=== PATIENT | male | born 1980 | race Caucasian/White ===

== ENCOUNTER 2017-11-07 11:49 | Inpatient (IN) ==
[2017-11-07 13:29] LABS: Basophils % 0.6 %; Eosinophils % 0.4 %; Hematocrit 51.4 % (37.5-50.1); Hemoglobin 17.5 g/dL (12.9-16.9); Immature Granulocytes % 0.2 % (0-4); Lymphocytes # 1.1 K/mcL (0.6-4.6); Lymphocytes % 21.8 %; Mean Corpuscular Hemoglobin 29.3 pg (28.0-33.3); Mean Corpuscular Volume 86.1 fL (83.0-100.0); Mean Platelet Volume 10.3 fL (9.4-12.4); Monocytes # 1.1 K/mcL (0.0-1.3); Monocytes % 20.2 %; Platelet Count 195 K/mcL (140-400); Red Blood Count 5.97 M/mcL (4.19-5.50); Segmented Neutrophils % 56.8 %
[2017-11-07 13:35] LABS: INR 1.3; Prothrombin Time 15.1 Seconds (9.4-12.1)
--- NOTE | 2017-11-07 13:35 | Emergency Department Note ---
Disposition Clinical Impression: Hepatitis Disposition: Admitted As Inpatient Condition: Good Referrals: NONE,PCP [Primary Care Provider] - Forms: ED Satisfaction Letter, Work/School Release Time of Disposition: 15:58 General Adult HPI - General Chief complaint: ED General Medical Stated complaint: jaundice Time Seen by Provider: 11/07/17 12:11 Source: patient Mode of arrival: ambulatory Limitations: no limitations Nursing Notes Reviewed: Yes Vital Signs Reviewed: Yes - History of Present Illness HPI Narrative: Clinton Escalante is a 36-yo male patient with PMHx of IV drug use, acute hepatitis several years ago for which he was partially treated at [facility], and current smoking, and denies any recent alcohol use. His chief complaint is jaundice with malaise and fatigue which have largely kept him bedridden, and which have been gradually increasing for the past four days. He also describes RUQ abdominal discomfort similar to what he experienced during his hepatitis episode. He endorses anorexia, chalky hand stools, and diffusely generalized itching, but denies abdominal pain, nausea, vomiting, constipation, diarrhea, fevers, or chills. He does not describe any aggravating or relieving factors. I have re-performed and reviewed the history documented by the medical student, and I confirm its accuracy except as noted below Patient is seen and evaluated by me agree with the above history done by medical student. I also got from the patient that the jaundice in his eyes and sclera are new approximate 3 days ago. He was diagnosed with hepatitis C at that previous visit. Patient said that he has had mild weakness no real abdominal pain just discomfort if you palpate his right upper quadrant. Otherwise patient feels normal has no other complaints. Patient had no increased bruising, changes in bowel movements, pain with urination. Onset (ago): day(s) (4) Location: abdomen Radiation: non-radiation Pain Severity: mild Pain Scale: 3 - Related Data Previous Rx's Medication Instructions Recorded Sulfamethoxazole/Trimeth DS 1 each PO BID #14 tablet 09/26/16 [Bactrim DS] cephALEXin [Keflex] 500 mg PO QID #40 capsule 09/26/16 Allergies Allergy/AdvReac Type Severity Reaction Status Date / Time No Known Allergies Allergy Verified 11/07/17 11:59 All systems ED: reviewed and negative except as stated. Constitutional: Reports: weakness, other (malaise and fatigue) Cardiovascular: Denies: chest pain, edema Respiratory: Denies: dyspnea Gastrointestinal: Reports: other (bailon-white stools, anorexia). Denies: abdominal pain, nausea, vomiting, diarrhea, constipation Genitourinary: Denies: urgency, dysuria, frequency Musculoskeletal: Denies: back pain, neck pain Integumentary: Reports: other (diffuse itching) Neurological: Reports: weakness. Denies: headache, numbness, paresthesias, confusion Past Medical History - Past Medical History Attestation: Yes The following information was validated with the patient. Source: patient Medical history: Reports: hepatitis Surgical history: Reports: no surgical history Psychiatric history: Reports: no psych history - Social History Smoking Status: Current every day smoker Smokeless Tobacco Status: No Alcohol use: Reports: none Drug use: Reports: methamphetamine, IV Drug Use Physical Exam - General Limitations: no limitations General appearance: alert, in no apparent distress - Head Head exam: normal inspection - Eye Eye exam: Present: scleral icterus - ENT ENT exam: normal exam - Neck Neck exam: Present: normal inspection - Chest Chest inspection: Present: normal inspection, symmetric chest wall rise - Respiratory Respiratory exam: Present: normal lung sounds bilaterally - Cardiovascular Cardiovascular exam: Present: regular rate, normal rhythm - Abdominal Exam Abdominal exam: Present: soft, tenderness (RUQ with inspiration), normal bowel sounds, Willoughby's sign. Absent: guarding, rebound, rigidity, organomegaly Abdominal tenderness: Present: RUQ, mild - Extremities Exam Extremities exam: Present: normal inspection - Neurological Exam Neurological exam: Present: alert, oriented X3 - Skin Skin exam: Present: warm, dry, other (Generalized jaundice) Course Course Narrative: Patient here with jaundice. He does have mild pain when palpating the right upper quadrant. Liver is not palpable. We will get basic labs including CBC, BMP, hepatic panel, hepatitis viral panel, PT/INR, lipase as well as urinalysis. - Consultations Consultation #1: Spoke with the hospitalist Dr. Yun who agreed to admit the patient to their service. Patient is admitted in stable condition. Time: 15:45 Vital Signs Temperature 97.7 F 11/07/17 11:55 Pulse Rate 99 11/07/17 11:55 Respiratory Rate 16 11/07/17 11:55 Blood Pressure 139/93 11/07/17 11:55 O2 Sat by Pulse Oximetry 94 11/07/17 11:55 Temperature 97.7 F 11/07/17 11:55 Pulse Rate 99 11/07/17 11:55 Respiratory Rate 16 11/07/17 11:55 Blood Pressure 139/93 11/07/17 11:55 O2 Sat by Pulse Oximetry 94 11/07/17 11:55 Oxygen Delivery Oxygen Delivery Room Air Medical Decision Making - MDM Narrative Medical decision making narrative: 36-year-old male presents to the emergency department with jaundice. He did not have any right upper quadrant pain when I palpated there is no palpable liver. Labs came back with a normal PT INR normal CBC CMP did come back with an elevated AST and a LT that were greater than what our lab could read a greater than 3000 and 500. Alkaline phosphatase was also elevated. Due to this patient most likely has hepatitis A and hepatitis C due to history. Patient said that he would be okay with being admitted here if GI can see him here he feels that he does not have to go to [facility]. Patient did have a dirty urine glucose esterase as well as nitrite positive this does seem on with a 36- year-old male but just in case we felt that treatment with Rocephin is warranted 's we did give him 1 dose of Rocephin here in the emergency department. Hepatitis be came back as negative the rest the hepatitis viral panel is still pending at this time. Patient had an IV placed. I spoke with the hospitalist Dr. Yun who agreed to admit the patient to their service. Patient is admitted in stable condition. - Medical Records Medical records reviewed: Yes I reviewed the patient's medical records. - Lab Data Lab results reviewed: Yes I reviewed the patient's lab results. Result diagrams: 11/07/17 13:04 11/07/17 13:04 Lab Results 11/07/17 11/07/17 11/07/17 Range/Units 13:04 13:04 13:04 WBC 5.2 (4.3-11.1) K/mcL RBC 5.97 H (4.19-5.50) M/mcL Hgb 17.5 H (12.9-16.9) g/dL Hct 51.4 H (37.5-50.1) % MCV 86.1 (83.0-100.0) fL MCH 29.3 (28.0-33.3) pg MCHC 34.0 (31.6-35.5) g/dL RDW 15.0 H (11.5-14.5) % Plt Count 195 (140-400) K/mcL MPV 10.3 (9.4-12.4) fL Immature Gran % 0.2 (0-4) % Seg Neutrophils % 56.8 % Lymphocytes % 21.8 % Monocytes % 20.2 % Eosinophils % 0.4 % Basophils % 0.6 % Neutrophils # 3.0 (1.6-8.9) K/mcL Lymphocytes # 1.1 (0.6-4.6) K/mcL Monocytes # 1.1 (0.0-1.3) K/mcL Eosinophils # 0.0 (0.0-0.6) K/mcL Basophils # 0.0 (0.0-0.2) K/mcL Reactive Lymphocytes Present A (Not Present) Platelet Estimate Normal (Normal) PT (9.4-12.1) Seconds INR Sodium 134 L (136-145) mEq/L Potassium 3.8 (3.5-5.1) mEq/L Chloride 100 (98-107) mEq/L Carbon Dioxide 26 (23-29) mEq/L BUN 11 (6-20) mg/dL Creatinine 1.13 (0.70-1.30) mg/dL Est GFR ( Amer) > 60 (> 60) Est GFR (Non-Af Amer) > 60 (> 60) BUN/Creatinine Ratio 10 (6-26) Glucose 77 (70-105) mg/dL Calculated Osmolality 276 L (280-300) Calcium 8.8 (8.6-10.3) mg/dL Total Bilirubin 6.1 H (0.3-1.0) mg/dL AST > 3000 H (13-39) Units/L ALT > 500 H (7-52) Units/L Alkaline Phosphatase 282 H (34-104) Units/L Serum Total Protein 7.0 (6.4-8.9) g/dL Albumin 3.5 (3.5-5.7) g/dL Globulin 3.5 (2.4-3.5) g/dL Albumin/Globulin Ratio 1.0 L (1.1-2.2) Lipase 29 (11-82) Units/L Urine Color (Yellow) Urine Clarity (Clear) Urine pH (5.0-8.0) pH Units Ur Specific [place] (1.010-1.025) Urine Protein (Neg-Trace) mg/dL Urine Glucose (UA) (Normal) mg/dL Urine Ketones (Negative) mg/dL Urine Blood (Negative) Urine Nitrite (Negative) Urine Bilirubin (Negative) Urine Urobilinogen (Normal) mg/dL Ur Leukocyte Esterase (Negative) Urine Microscopic WBC (0-3) per hpf Ur Squamous Epith Cells (None-Few) per lpf Urine Bacteria (None-Few) per hpf Urine Mucus (Few) Ur Culture Indicated? (NO) Hep Bs Antigen Nonreactive (Nonreactive) 11/07/17 11/07/17 Range/Units 13:04 13:48 WBC (4.3-11.1) K/mcL RBC (4.19-5.50) M/mcL Hgb (12.9-16.9) g/dL Hct (37.5-50.1) % MCV (83.0-100.0) fL MCH (28.0-33.3) pg MCHC (31.6-35.5) g/dL RDW (11.5-14.5) % Plt Count (140-400) K/mcL MPV (9.4-12.4) fL Immature Gran % (0-4) % Seg Neutrophils % % Lymphocytes % % Monocytes % % Eosinophils % % Basophils % % Neutrophils # (1.6-8.9) K/mcL Lymphocytes # (0.6-4.6) K/mcL Monocytes # (0.0-1.3) K/mcL Eosinophils # (0.0-0.6) K/mcL Basophils # (0.0-0.2) K/mcL Reactive Lymphocytes (Not Present) Platelet Estimate (Normal) PT 15.1 H (9.4-12.1) Seconds INR 1.3 Sodium (136-145) mEq/L Potassium (3.5-5.1) mEq/L Chloride (98-107) mEq/L Carbon Dioxide (23-29) mEq/L BUN (6-20) mg/dL Creatinine (0.70-1.30) mg/dL Est GFR ( Amer) (> 60) Est GFR (Non-Af Amer) (> 60) BUN/Creatinine Ratio (6-26) Glucose (70-105) mg/dL Calculated Osmolality (280-300) Calcium (8.6-10.3) mg/dL Total Bilirubin (0.3-1.0) mg/dL AST (13-39) Units/L ALT (7-52) Units/L Alkaline Phosphatase (34-104) Units/L Serum Total Protein (6.4-8.9) g/dL Albumin (3.5-5.7) g/dL Globulin (2.4-3.5) g/dL Albumin/Globulin Ratio (1.1-2.2) Lipase (11-82) Units/L Urine Color [place] A (Yellow) Urine Clarity Cloudy A (Clear) Urine pH 5.5 (5.0-8.0) pH Units Ur Specific [place] 1.021 (1.010-1.025) Urine Protein 30 H (Neg-Trace) mg/dL Urine Glucose (UA) 100 H (Normal) mg/dL Urine Ketones Trace H (Negative) mg/dL Urine Blood Negative (Negative) Urine Nitrite Positive A (Negative) Urine Bilirubin Large H (Negative) Urine Urobilinogen Normal (Normal) mg/dL Ur Leukocyte Esterase Small H (Negative) Urine Microscopic WBC 0-3 (0-3) per hpf Ur Squamous Epith Cells Few (None-Few) per lpf Urine Bacteria Few (None-Few) per hpf Urine Mucus Few (Few) Ur Culture Indicated? YES A (NO) Hep Bs Antigen (Nonreactive)
[2017-11-07 13:59] LABS: Bilirubin,Urine Large (Negative); Blood,Urine Negative (Negative); Clarity,Urine Cloudy (Clear); Color,Urine Orange (Yellow); Glucose,Urine (UA) 100 mg/dL (Normal); Ketones,Urine Trace mg/dL (Negative); Leukocyte Esterase,Urine Small (Negative); Nitrite,Urine Positive (Negative); PH,Urine 5.5 pH Units (5.0-8.0); Protein,Urine 30 mg/dL (Neg-Trace); Specific Gravity,Urine 1.021 (1.010-1.025); Urobilinogen,Urine Normal (Normal)
[2017-11-07 14:22] LABS: Hepatitis B Surface Antigen Nonreactive (Nonreactive)
[2017-11-07 14:23] LABS: Platelet Estimate Normal (Normal); Reactive Lymphocytes Present (Not Present)
[2017-11-07 14:57] LABS: Alanine Aminotransferase > 500 Units/L (7-52); Albumin 3.5 g/dL (3.5-5.7); Alkaline Phosphatase 282 Units/L (34-104); BUN/Creatinine Ratio 10 (6-26); Bilirubin,Total 6.1 mg/dL (0.3-1.0); Blood Urea Nitrogen 11 mg/dL (6-20); Calcium 8.8 mg/dL (8.6-10.3); Carbon Dioxide 26 mEq/L (23-29); Chloride 100 mEq/L (98-107); Globulin 3.5 g/dL (2.4-3.5); Glucose 77 mg/dL (70-105); Lipase 29 Units/L (11-82); Osmolality,Calculated 276 (280-300); Potassium 3.8 mEq/L (3.5-5.1); Sodium 134 mEq/L (136-145); eGFR For Non-African Americans > 60 (> 60)
[2017-11-07 15:04] LABS: Mucus,Urine Few (Few); Squamous Epithelial Cell,Urine Few per lpf (None-Few)
[2017-11-07 15:05] LABS: Bacteria,Urine Few per hpf (None-Few); WBC,Urine 0-3 per hpf (0-3)
[2017-11-07] MEDS ORDERED: 0.9 % Sodium Chloride 1,000 ML IVC ONE ×2 (15:09→16:56)
[2017-11-07] MEDS ORDERED: cefTRIAXone 1,000 MG in Water for inj. (sterile) 20 ML 10 ML IVP ONE (15:09)
[2017-11-07 15:11] LABS: Aspartate Amino Transferase > 3000 Units/L (13-39)
--- NOTE | 2017-11-07 16:16 | Emergency Department Note ---
Disposition Clinical Impression: Hepatitis Disposition: Admitted As Inpatient Condition: Good General Adult HPI - General Chief complaint: ED General Medical Stated complaint: jaundice Time Seen by Provider: 11/07/17 12:11 Source: patient Mode of arrival: ambulatory Limitations: no limitations - History of Present Illness Location: abdomen Pain Scale: 3 - Related Data Home Medications Medication Instructions Recorded Confirmed No Known Home Drugs 11/07/17 11/07/17 Allergies Allergy/AdvReac Type Severity Reaction Status Date / Time No Known Allergies Allergy Verified 11/07/17 11:59 Constitutional: Reports: weakness, other (malaise and fatigue) Cardiovascular: Denies: chest pain, edema Respiratory: Denies: dyspnea Gastrointestinal: Reports: other (bailon-white stools, anorexia). Denies: abdominal pain, nausea, vomiting, diarrhea, constipation Genitourinary: Denies: urgency, dysuria, frequency Musculoskeletal: Denies: back pain, neck pain Integumentary: Reports: other (diffuse itching) Neurological: Reports: weakness. Denies: headache, numbness, paresthesias, confusion Past Medical History - Past Medical History Medical history: Reports: hepatitis Surgical history: Reports: no surgical history Psychiatric history: Reports: no psych history - Social History Smoking Status: Current every day smoker Smokeless Tobacco Status: No Alcohol use: Reports: none Drug use: Reports: methamphetamine, IV Drug Use Physical Exam - General Limitations: no limitations General appearance: alert, in no apparent distress Course Vital Signs Temperature 97.7 F 11/07/17 11:55 Pulse Rate 99 11/07/17 11:55 Respiratory Rate 16 11/07/17 11:55 Blood Pressure 139/93 11/07/17 11:55 O2 Sat by Pulse Oximetry 94 11/07/17 11:55 Temperature 97.7 F 11/07/17 11:55 Pulse Rate 99 11/07/17 11:55 Respiratory Rate 16 11/07/17 11:55 Blood Pressure 139/93 11/07/17 11:55 O2 Sat by Pulse Oximetry 94 11/07/17 11:55 Oxygen Delivery Oxygen Delivery Room Air Medical Decision Making - Lab Data Result diagrams: 11/07/17 13:04 11/07/17 13:04 Lab Results 11/07/17 11/07/17 11/07/17 Range/Units 13:04 13:04 13:04 WBC 5.2 (4.3-11.1) K/mcL RBC 5.97 H (4.19-5.50) M/mcL Hgb 17.5 H (12.9-16.9) g/dL Hct 51.4 H (37.5-50.1) % MCV 86.1 (83.0-100.0) fL MCH 29.3 (28.0-33.3) pg MCHC 34.0 (31.6-35.5) g/dL RDW 15.0 H (11.5-14.5) % Plt Count 195 (140-400) K/mcL MPV 10.3 (9.4-12.4) fL Immature Gran % 0.2 (0-4) % Seg Neutrophils % 56.8 % Lymphocytes % 21.8 % Monocytes % 20.2 % Eosinophils % 0.4 % Basophils % 0.6 % Neutrophils # 3.0 (1.6-8.9) K/mcL Lymphocytes # 1.1 (0.6-4.6) K/mcL Monocytes # 1.1 (0.0-1.3) K/mcL Eosinophils # 0.0 (0.0-0.6) K/mcL Basophils # 0.0 (0.0-0.2) K/mcL Reactive Lymphocytes Present A (Not Present) Platelet Estimate Normal (Normal) PT (9.4-12.1) Seconds INR Sodium 134 L (136-145) mEq/L Potassium 3.8 (3.5-5.1) mEq/L Chloride 100 (98-107) mEq/L Carbon Dioxide 26 (23-29) mEq/L BUN 11 (6-20) mg/dL Creatinine 1.13 (0.70-1.30) mg/dL Est GFR ( Amer) > 60 (> 60) Est GFR (Non-Af Amer) > 60 (> 60) BUN/Creatinine Ratio 10 (6-26) Glucose 77 (70-105) mg/dL Calculated Osmolality 276 L (280-300) Calcium 8.8 (8.6-10.3) mg/dL Total Bilirubin 6.1 H (0.3-1.0) mg/dL AST > 3000 H (13-39) Units/L ALT > 500 H (7-52) Units/L Alkaline Phosphatase 282 H (34-104) Units/L Serum Total Protein 7.0 (6.4-8.9) g/dL Albumin 3.5 (3.5-5.7) g/dL Globulin 3.5 (2.4-3.5) g/dL Albumin/Globulin Ratio 1.0 L (1.1-2.2) Lipase 29 (11-82) Units/L Urine Color (Yellow) Urine Clarity (Clear) Urine pH (5.0-8.0) pH Units Ur Specific [place] (1.010-1.025) Urine Protein (Neg-Trace) mg/dL Urine Glucose (UA) (Normal) mg/dL Urine Ketones (Negative) mg/dL Urine Blood (Negative) Urine Nitrite (Negative) Urine Bilirubin (Negative) Urine Urobilinogen (Normal) mg/dL Ur Leukocyte Esterase (Negative) Urine Microscopic WBC (0-3) per hpf Ur Squamous Epith Cells (None-Few) per lpf Urine Bacteria (None-Few) per hpf Urine Mucus (Few) Ur Culture Indicated? (NO) Hep Bs Antigen Nonreactive (Nonreactive) 11/07/17 11/07/17 Range/Units 13:04 13:48 WBC (4.3-11.1) K/mcL RBC (4.19-5.50) M/mcL Hgb (12.9-16.9) g/dL Hct (37.5-50.1) % MCV (83.0-100.0) fL MCH (28.0-33.3) pg MCHC (31.6-35.5) g/dL RDW (11.5-14.5) % Plt Count (140-400) K/mcL MPV (9.4-12.4) fL Immature Gran % (0-4) % Seg Neutrophils % % Lymphocytes % % Monocytes % % Eosinophils % % Basophils % % Neutrophils # (1.6-8.9) K/mcL Lymphocytes # (0.6-4.6) K/mcL Monocytes # (0.0-1.3) K/mcL Eosinophils # (0.0-0.6) K/mcL Basophils # (0.0-0.2) K/mcL Reactive Lymphocytes (Not Present) Platelet Estimate (Normal) PT 15.1 H (9.4-12.1) Seconds INR 1.3 Sodium (136-145) mEq/L Potassium (3.5-5.1) mEq/L Chloride (98-107) mEq/L Carbon Dioxide (23-29) mEq/L BUN (6-20) mg/dL Creatinine (0.70-1.30) mg/dL Est GFR ( Amer) (> 60) Est GFR (Non-Af Amer) (> 60) BUN/Creatinine Ratio (6-26) Glucose (70-105) mg/dL Calculated Osmolality (280-300) Calcium (8.6-10.3) mg/dL Total Bilirubin (0.3-1.0) mg/dL AST (13-39) Units/L ALT (7-52) Units/L Alkaline Phosphatase (34-104) Units/L Serum Total Protein (6.4-8.9) g/dL Albumin (3.5-5.7) g/dL Globulin (2.4-3.5) g/dL Albumin/Globulin Ratio (1.1-2.2) Lipase (11-82) Units/L Urine Color [place] A (Yellow) Urine Clarity Cloudy A (Clear) Urine pH 5.5 (5.0-8.0) pH Units Ur Specific [place] 1.021 (1.010-1.025) Urine Protein 30 H (Neg-Trace) mg/dL Urine Glucose (UA) 100 H (Normal) mg/dL Urine Ketones Trace H (Negative) mg/dL Urine Blood Negative (Negative) Urine Nitrite Positive A (Negative) Urine Bilirubin Large H (Negative) Urine Urobilinogen Normal (Normal) mg/dL Ur Leukocyte Esterase Small H (Negative) Urine Microscopic WBC 0-3 (0-3) per hpf Ur Squamous Epith Cells Few (None-Few) per lpf Urine Bacteria Few (None-Few) per hpf Urine Mucus Few (Few) Ur Culture Indicated? YES A (NO) Hep Bs Antigen (Nonreactive) Attestation Statement - Attestation Attestation: I examined this patient and my medical decision-making was reviewed with the Resident Physician. I agree with the documented findings, disposition and treatment plan as described except to the extent set forth below. 36 year old male with history of hep c and his last excerbation was 2014 and states that he feels jaundiced at this time. He could possibly have a co- infection with hep A as this has been occuring in the area. His bili is 6.1 and AST/ALT are extremely elevated. We willl admit to medicine
[2017-11-07] MEDS ORDERED: Acetaminophen 325 MG TABLET PO PRN (16:52)
[2017-11-07] MEDS ORDERED: Naloxone 0.4 MG/ML INJ IVP PRN (16:52)
[2017-11-07 17:01] LABS: Amphetamine Screen,Urine Positive ng/mL (Cutoff=1000); Barbiturate Screen,Urine Negative ng/mL (Cutoff=200); Benzodiazepines Screen,Urine Negative ng/mL (Cutoff=200); Cannabinoid Screen,Urine Positive ng/mL (Cutoff = 50); Cocaine Screen,Urine Negative ng/mL (Cutoff= 300); Opiate Screen,Urine Negative ng/mL (Cutoff=300); Phencyclidine Screen,Urine Negative ng/mL (Cutoff=25)
--- NOTE | 2017-11-07 17:17 | Internal Med History&Physical ---
<OrenYohan - Last Filed: 11/07/17 18:01> Date of Encounter: 11/07/17 Time of Encounter: 16:30 Internal Medicine - H&P: HPI Chief complaint: Jaundiced/Weakness Admitted From: Emergency Dept Plans for Post Hospital Care: Home History of present illness: Mr. Escalante is a 36 year old male w/PMH of hepatitis presents from the ED w/CC of severe weakness and jaundice since Saturday. Pt. states that he had the same sx in 2015 w/hepatitis @ [facility]. Associated sx: nausea, vomiting, chills, and itching all over. No alleviating or aggravating factors. States that he has not been eating much but has been trying in increase his fluids. Reports frequent urination and dark urine for the past several days. Pt. reports IV drug use ( meth) on Saturday, oral ingestion of meth on Saturday, chalky stools, RUQ pain, nausea, vomiting, chills, and diffuse itching but denies recent illness, fever, changes in vision, headache, unusual bleeding, diarrhea, constipation, cough, chest congestion, dizziness, lightheadedness, numbness, tingling, pre-syncope, or syncope. Past Med Surg Social Fam HX - Past Medical History Source: patient, old records reviewed Medical history: hepatitis Psychiatric history: no psych history - Past Surgical History Surgical History: no surgical history - Social History Smoking Status: Current every day smoker Packs per day: 1/2 PPD Smokeless Tobacco Status: No Alcohol use: none Drug use: methamphetamine (Last injection on Saturday. Reports oral ingestion on Saturday.), IV Drug Use (Last used on Saturday - Reports injecting meth) Current living situation: Home Activity Level: Independent ambulation Recent Out of Country Travel Within the Last 8 Weeks: No Exposure or Possible Exposure to Illness During Travel: No - Family History Father Family Member Ethnicity: Non- Living Status: Still Living Hx Family Medical Disorders: No Mother Family Member Ethnicity: Non- Living Status: Still Living Hx Family Medical Disorders: No Sister Family Member Ethnicity: Non- Living Status: Still Living Hx Family Medical Disorders: No Internal Medicine - H&P: Meds No Known Home Drugs 11/07/17 [History] 3 Allergy/AdvReac Type Severity Reaction Status Date / Time No Known Allergies Allergy Verified 11/07/17 11:59 All Systems PM: A 10-system review of systems was performed and is negative for pertinent findings except as documented above in the HPI. - Constitutional Constitutional: anorexia, chills, fatigue, weakness, no fever(s), no night sweats - EENT Eyes: no change in vision, no discharge, no pain, no photophobia Ears: no ear discharge, no ear pain, no tinnitus Nose, mouth and throat: no dysphagia, no nasal discharge, no neck pain, no sore throat - Breasts Breasts: as per HPI - Cardiovascular Cardiovascular ROS IM: no chest pain, no diaphoresis, no dyspnea, no lightheadedness, no palpitations, no syncope - Respiratory Respiratory: no cough, no dyspnea, no wheezing, no excessive phlegm production - Gastrointestinal Gastrointestinal: as per HPI, abdominal pain, change in stool character (Chalky) , nausea, vomiting, no diarrhea, no hematemesis, no hematochezia, no melena - Genitourinary Genitourinary ROS male: as per HPI, urinary frequency - Musculoskeletal Musculoskeletal ROS IM: no numbness, no tingling - Integumentary Integumentary IM: no rash, no unusual bruising - Neurological Neurological ROS: no confusion, no convulsions, no focal weakness, no numbness, no tingling, no tremor(s) - Psychiatric Psychiatric: as per HPI - Endocrine Endocrine IM: as per HPI - Hematologic/Lymphatic Hematologic/Lymphatic: no easy bruising - Allergic/Immunologic Allergic/Immunologic: as per HPI - Constitutional Vitals: Temp Pulse Resp BP Pulse Ox 97.7 F 99 16 139/93 94 11/07/17 11:55 11/07/17 11:55 11/07/17 11:55 11/07/17 11:55 11/07/17 11:55 General appearance: Present: cooperative, A&O X 3, pleasant, no acute distress, obese, answers questions appropriately Exam: Pt. examined at bedside. Pt. reports severe weakness, fatigue, and being in bed for the past several days. Reports reduced appetite and RUQ pain. States he's had episodes of N/V. Abelardo stools. States that he injected meth on Saturday and did oral ingestion of meth on Saturday. Also reports chills and diffuse, allover itching. Mildly jaundiced on exam. Denies any other sx. Pt. to be falls/ safety precautions and up with assist d/t weakness. - Head Head exam: Present: atraumatic, normocephalic - Eye Eye exam: Present: PERRL Pupils: Present: PERRL Additional comments: Sclera mildly yellow. - ENT ENT exam: Present: normal exam - Neck Neck exam general surgery: Present: normal inspection, supple, trachea midline. Absent: lymphadenopathy - Respiratory Respiratory exam: Present: CTAB. Absent: accessory muscle use, rales, rhonchi, wheezes - Cardiovascular Cardiovascular exam: Present: RRR, +S1, +S2. Absent: diastolic murmur, gallop, rubs, systolic murmur - GI/Abdominal GI/Abdominal exam: Present: normal bowel sounds, soft, tenderness (RUQ), no peritoneal signs. Absent: distended - Rectal Rectal exam: Present: deferred - Additional comments: exam deferred. - Extremities Exam Extremities exam: Present: warm, radial pulses palpable and symmetrical. Absent : calf tenderness, cyanotic, pedal edema - Back Exam Back exam: Present: normal inspection - Neurological Exam Neurological exam: Present: alert, CN II-XII intact, oriented X3, no focal deficits. Absent: pronater drift, facial droop, speech deficit - Psychiatric Psychiatric exam: Present: normal affect, normal mood - Skin Skin exam: Present: dry, intact Internal Med - H&P Results - Labs CBC & Chem 7: 11/07/17 13:04 11/07/17 13:04 - Assessment and plan (1) Hepatitis Current Visit: Yes Status: Acute Assessment and plan: Acute on chronic hepatitis. Pt. reports last sx in 2014 when he was treated at [facility]. Pt. currently mildly jaundiced. RUQ pain. 0.9 NS IV fluids. Monitor pt. and f/u labs. AST >3000 and ALT >500 on admission. Total bilirubin 6.1. Hepatitis panel pending. Ethyl alcohol pending. Lipase results pending. CT of the abdomen/pelvis ordered. GI consult ordered and I appreciate the consult and recommendations. GI consult needs confirmed in a.m. IVP Reglan for N/V. Clear liquid diet to be advanced as tolerated. 0.9 NS IV fluids (bolus followed by 100 mLs/HR). Pt. discussed w/Dr. Hassan who agrees w/plan of care. Pt. is high risk for further morbidity and complications d/t current and recurrent hepatitis , current IV drug abuse, current elevated liver enzymes, hx, and risk factors. Observation. (2) Weakness Current Visit: Yes Status: Acute Assessment and plan: Acute severe weakness since Saturday. Falls/safety precautions and up with assist only. (3) Drug abuse Current Visit: Yes Status: Chronic Assessment and plan: Hx of chronic drug abuse. Pt. states he uses meth. Reports injecting on Saturday and oral ingestion on Saturday. Urine tox screen also positive for marijuana. SW consult ordered for possible rehabilitation for chronic drug abuse. (4) Tobacco abuse Current Visit: Yes Status: Chronic Assessment and plan: Hx of chronic tobacco abuse. Pt. reports smoking 1/2 PPD. States he does not currently want to quit. 14 mg nicotine patch daily. (5) DVT prophylaxis Current Visit: Yes Status: Acute Assessment and plan: Bilateral SCDs on LEs for DVT prophylaxis. (6) Nausea and vomiting Current Visit: Yes Status: Acute Assessment and plan: Acute N/V associated w/current abdominal pain r/t hepatitis. IVP Reglan for N/V d/t kidney excretion versus hepatic excretion of Zofran and Phenergan. Monitor I &O. Qualifiers: Vomiting type: cyclical vomiting Vomiting Intractability: non-intractable Qualified Code(s): G43.A0 - Cyclical vomiting, not intractable - Time Spent With Patient Total time spent is greater than 50% in coordination of care (as documented) at patient's floor/unit and/or counseling patient: Greater than 35 minutes <Yeni Hassan - Last Filed: 11/07/17 22:09> Date of Encounter: 11/07/17 Internal Medicine - H&P: HPI History of present illness: Mr. Escalante is a 36 year old male All Systems PM: A 10-system review of systems was performed and is negative for pertinent findings except as documented above in the HPI. - Constitutional Vitals: Temp Pulse Resp BP Pulse Ox 100.3 F H 84 17 126/82 99 11/07/17 19:22 11/07/17 19:22 11/07/17 19:22 11/07/17 19:22 11/07/17 19:22 Internal Med - H&P Results - Labs CBC & Chem 7: 11/07/17 13:04 11/07/17 13:04 - Impressions ITS Impressions Abdomen/Pelvis CT 11/07/17 17:23 IMPRESSION: 1. Mild periportal edema is present, which is a nonspecific finding. No significant biliary dilation is seen, although lack of intravenous contrast limits evaluation. 2. Borderline splenomegaly. D/ / 11/07/2017 18:31:54 Mauricio Squires MD / [facility] Interpreting Provider: Mauricio Squires MD - Assessment and plan (1) Hepatitis Current Visit: Yes Status: Acute (2) Weakness Current Visit: Yes Status: Acute (3) Drug abuse Current Visit: Yes Status: Chronic (4) DVT prophylaxis Current Visit: Yes Status: Acute (5) Tobacco abuse Current Visit: Yes Status: Chronic (6) Nausea and vomiting Current Visit: Yes Status: Acute Qualifiers: Vomiting type: cyclical vomiting Vomiting Intractability: non-intractable Qualified Code(s): G43.A0 - Cyclical vomiting, not intractable - Time Spent With Patient Total time spent is greater than 50% in coordination of care (as documented) at patient's floor/unit and/or counseling patient: - Attending Attestation I examined this patient and my medical decision-making was reviewed with the Nurse Practitioner. I agree with the documented findings, disposition and treatment plan as described except to the extent set forth below. GI consult and evaluate acute hepatitis. Also continue IV fluids.
[2017-11-07] MEDS ORDERED: Ondansetron 4 MG/2 ML VIAL IVP PRN (17:43)
[2017-11-07] MEDS ORDERED: Metoclopramide 10 MG/2 ML VIAL IVP PRN (17:56)
[2017-11-07 19:25] LABS: Ethanol < 10 mg/dL (Less than 10)
[2017-11-07] MEDS: Nicotine 14 MG PATCH.TD24 TD SCH (19:37)
[2017-11-07] MEDS: 0.9 % Sodium Chloride 1,000 ML IVC SCH (21:01)
[2017-11-07] MEDS ORDERED: Acetaminophen 325 MG TABLET PO ONE (23:27)
[2017-11-08 03:54] LABS: Hepatitis A Antibody IgM Reactive (Nonreactive)
[2017-11-08 03:55] LABS: Hepatitis B Core IgM Reactive (Nonreactive); Hepatitis C Virus Antibody Reactive (Nonreactive)
[2017-11-08 05:49] LABS: Basophils % 0.4 %; Eosinophils % 0.4 %; Hematocrit 44.2 % (37.5-50.1); Immature Granulocytes % 0.6 % (0-4); Lymphocytes # 1.3 K/mcL (0.6-4.6); Lymphocytes % 25.6 %; Mean Corpuscular HGB Conc 33.7 g/dL (31.6-35.5); Mean Corpuscular Hemoglobin 28.7 pg (28.0-33.3); Mean Corpuscular Volume 85.2 fL (83.0-100.0); Mean Platelet Volume 10.2 fL (9.4-12.4); Monocytes # 1.1 K/mcL (0.0-1.3); Platelet Count 214 K/mcL (140-400); Red Blood Count 5.19 M/mcL (4.19-5.50); Red Cell Distribution Width 15.2 % (11.5-14.5)
[2017-11-08 05:56] LABS: Hemoglobin 14.9 g/dL (12.9-16.9); Neutrophils # 2.6 K/mcL (1.6-8.9)
[2017-11-08 06:20] LABS: Platelet Estimate Normal (Normal)
[2017-11-08 06:21] LABS: Reactive Lymphocytes Present (Not Present)
[2017-11-08 06:24] LABS: Alanine Aminotransferase > 500 Units/L (7-52); Albumin 2.9 g/dL (3.5-5.7); Alkaline Phosphatase 217 Units/L (34-104); Aspartate Amino Transferase > 3000 Units/L (13-39); BUN/Creatinine Ratio 12 (6-26); Bilirubin,Total 6.3 mg/dL (0.3-1.0); Blood Urea Nitrogen 11 mg/dL (6-20); Calcium 7.8 mg/dL (8.6-10.3); Carbon Dioxide 24 mEq/L (23-29); Chloride 107 mEq/L (98-107); Cholesterol 99 mg/dL (< 200); Glucose 99 mg/dL (70-105); HDL Cholesterol < 3 mg/dL (40-59); Magnesium 1.7 mg/dL (1.6-2.6); Osmolality,Calculated 279 (280-300); Potassium 4.3 mEq/L (3.5-5.1); Sodium 135 mEq/L (136-145); Total Protein 5.9 g/dL (6.4-8.9); Triglycerides 219 mg/dL (< 150); eGFR For Non-African Americans > 60 (> 60)
[2017-11-08] MEDS: 0.9 % Sodium Chloride 1,000 ML IVC SCH ×2 (06:27→16:42)
[2017-11-08] MEDS: Nicotine 14 MG PATCH.TD24 TD SCH (09:04)
--- NOTE | 2017-11-08 14:01 | Gastroenterology Consult Note ---
<Clinton Manuel C - Last Filed: 11/08/17 13:59> Date of Encounter: 11/08/17 Time of Encounter: 10:15 - Assessment and plan (1) Hepatitis Current Visit: Yes Status: Acute Assessment and plan: Hepatitis profile positive for Hep A, B, and C. LFTs elevated secondary to hepatitis A. Monitor hepatic panel daily. Follow up with Dr. Pate as outpatient in 2-3 weeks. Complete liver work up. Check hepatitis C quant and genotype to evaluate for active hep C. Patient will need to be drug and alcohol free in order to receive treatment for hep C. Instructed patient to not share any thing that could potentially cause bleeding such as razors, nail clippers, hair clippers. Instructed patient that if they were to cut themselves they need to clean up the blood or if someone else cleans up they need to wear gloves. Instructed patient they need to use protection while having sex. (2) Jaundice due to hepatitis Current Visit: Yes Status: Acute (3) Drug abuse Current Visit: Yes Status: Chronic - Time Spent With Patient Total time spent is greater than 50% in coordination of care (as documented) at patient's floor/unit and/or counseling patient: GI History of Present Illness - Data of Consult Patient: new to practice Consult date: 11/08/17 Requesting Physician: Eliceo Grace - Consult Narrative Reason for consult: Jaundice, hepatitis History of present illness: Mr. Escalante is a 36 year old male with PMHx of hepatitis presented to the ED with complaints of weakness and jaundice. He states he had the same symptoms with hepatitis in 2015 at [facility]. He also complains of nausea, vomiting, chills, and itching all over. Pt. reports IV drug use (meth) on Saturday, oral ingestion of meth on Saturday. History of intranasal drug use, unprofessional tattoos. He denies fever, chest pain, diarrhea, constipation, melena, or hematochezia. CT A/ P shows mild periportal edema is present, which is a nonspecific finding, no significant biliary dilation is seen. On admission total bili 6.1, AST >3000, and ALT >500. He is positive for hepatitis A and B, and screened positive for hepatitis C. Procedures: None NSAIDs: None Anticoagulation: None Past Med Surg Social Fam HX - Past Medical History Medical history: hepatitis Psychiatric history: anxiety - Past Surgical History Surgical History: no surgical history - Social History Smoking Status: Current every day smoker Packs per day: 1/2 PPD Smokeless Tobacco Status: No Alcohol use: none Drug use: marijuana, methamphetamine, IV Drug Use - Family History Father Family Member Ethnicity: Non- Living Status: Still Living Hx Family Medical Disorders: No Mother Family Member Ethnicity: Non- Living Status: Still Living Hx Family Medical Disorders: No Sister Family Member Ethnicity: Non- Living Status: Still Living Hx Family Medical Disorders: No - Gastrointestinal Gastrointestinal: Present: as per HPI - Constitutional Constitutional: as per HPI - EENT Eyes: as per HPI Ears: Present: as per HPI Nose, mouth and throat: Present: as per HPI - Cardiovascular Cardiovascular ROS: Present: as per HPI - Respiratory Respiratory IM: Present: as per HPI - Genitourinary Genitourinary: Absent: change in color, Urinary frequency - Neurological ROS Neurological GI: Present: as per HPI - Hematologic/Lymphatic Hematologic/Lymphatic pediatric: Present: as per HPI - Musculoskeletal Musculoskeletal ROS GI: Present: as per HPI - Integumentary Integumentary GI: Present: as per HPI - Psychiatric ROS Psychiatric GI: Present: as per HPI - Endocrine Endocrine IM: Present: as per HPI - Constitutional Vitals: Temp Pulse Resp BP Pulse Ox 98.2 F 79 19 130/83 99 11/08/17 11:22 11/08/17 11:22 11/08/17 11:22 11/08/17 11:22 11/08/17 11:22 General appearance: Present: cooperative, A&O X 3, no acute distress, answers questions appropriately - Head Head exam: Present: atraumatic, normocephalic - Eye Eye exam: Present: scleral icterus - ENT ENT exam: Present: mucous membranes moist - Neck Neck exam general surgery: Present: normal inspection, trachea midline - Respiratory Respiratory exam: Present: CTAB. Absent: rales, rhonchi - Cardiovascular Cardiovascular exam: Present: RRR, +S1, +S2 - GI/Abdominal GI/Abdominal exam: Present: soft, no peritoneal signs. Absent: distended, firm , guarding, tenderness - Rectal Rectal exam: Present: deferred - Extremities Exam Extremities exam: Present: warm - Neurological Exam Neurological exam: Present: no focal deficits - Psychiatric Psychiatric exam: Present: normal affect, normal mood - Skin Skin exam: Present: dry, intact, warm. Absent: normal color (Jaundice) Results - Labs CBC & Chem 7: 11/08/17 05:16 11/08/17 05:16 Labs: Last Result Calcium 7.8 mg/dL (8.6-10.3) L 11/08/17 05:16 Triglycerides 219 mg/dL (< 150) H 11/08/17 05:16 Urine Opiates Screen Negative ng/mL (Sbaplp=640) 11/07/17 13:48 Entire Visit Hgb 14.9 g/dL (12.9-16.9) D 11/08/17 05:16 Hct 44.2 % (37.5-50.1) 11/08/17 05:16 PT 15.1 Seconds (9.4-12.1) H 11/07/17 13:04 Total Bilirubin 6.3 mg/dL (0.3-1.0) H 11/08/17 05:16 AST > 3000 Units/L (13-39) H 11/08/17 05:16 ALT > 500 Units/L (7-52) H 11/08/17 05:16 Lipase 29 Units/L (11-82) 11/07/17 13:04 - ABG ABG results: PT/INR, D-dimer PT 15.1 Seconds (9.4-12.1) H 11/07/17 13:04 - Impressions Impressions Abdomen/Pelvis CT 11/07/17 17:23 IMPRESSION: 1. Mild periportal edema is present, which is a nonspecific finding. No significant biliary dilation is seen, although lack of intravenous contrast limits evaluation. 2. Borderline splenomegaly. D/ / 11/07/2017 18:31:54 Mauricio Squires MD / [facility] Interpreting Provider: Mauricio Squires MD Consult Discharge Plan - Plan Referrals: NONE,PCP [Primary Care Provider] - <Frank Pate - Last Filed: 11/08/17 16:27> Date of Encounter: 11/08/17 Time of Encounter: 13:00 - Time Spent With Patient Total time spent is greater than 50% in coordination of care (as documented) at patient's floor/unit and/or counseling patient: GI History of Present Illness - Data of Consult Requesting Physician: Eliceo Grace - Consult Narrative History of present illness: Mr. Escalante is a 36 year old male - Constitutional Vitals: Temp Pulse Resp BP Pulse Ox 99.5 F 70 19 132/80 92 11/08/17 16:14 11/08/17 16:14 11/08/17 16:14 11/08/17 16:14 11/08/17 16:14 Results - Labs CBC & Chem 7: 11/08/17 05:16 11/08/17 05:16 Labs: Last Result Calcium 7.8 mg/dL (8.6-10.3) L 11/08/17 05:16 Ferritin > 1500 ng/mL (20-250) H 11/08/17 14:12 Triglycerides 219 mg/dL (< 150) H 11/08/17 05:16 Urine Opiates Screen Negative ng/mL (Hjroec=154) 11/07/17 13:48 Entire Visit Hgb 14.9 g/dL (12.9-16.9) D 11/08/17 05:16 Hct 44.2 % (37.5-50.1) 11/08/17 05:16 PT 15.1 Seconds (9.4-12.1) H 11/07/17 13:04 Ferritin > 1500 ng/mL (20-250) H 11/08/17 14:12 Total Bilirubin 6.3 mg/dL (0.3-1.0) H 11/08/17 05:16 AST > 3000 Units/L (13-39) H 11/08/17 05:16 ALT > 500 Units/L (7-52) H 11/08/17 05:16 Lipase 29 Units/L (11-82) 11/07/17 13:04 - ABG ABG results: PT/INR, D-dimer PT 15.1 Seconds (9.4-12.1) H 11/07/17 13:04 - Impressions Impressions Abdomen/Pelvis CT 11/07/17 17:23 IMPRESSION: 1. Mild periportal edema is present, which is a nonspecific finding. No significant biliary dilation is seen, although lack of intravenous contrast limits evaluation. 2. Borderline splenomegaly. D/ / 11/07/2017 18:31:54 Mauricio Squires MD / [facility] Interpreting Provider: Mauricio Squires MD - Attending Attestation I have personally performed a face to face evaluation on this patient. I have reviewed and agree with the care plan. History and Exam by me shows: Pt seen. Felling not well. O/E: Avbd mild RUQ tanderness. A: Pt with acute Hep A with elevated LFTS. Elavted Hep B core IgM is false positive as surface antigen is negative. Also has hep C Rec: Follow LFTS, Check Tylenol level ( denies any intake)
[2017-11-08] MEDS ORDERED: Ondansetron 4 MG/2 ML VIAL IVP PRN (15:14)
--- NOTE | 2017-11-08 18:45 | Internal Med Progress Note ---
Hospitalist Progress Note - Encounter Date of Encounter: 11/08/17 Time of Encounter: 11:00 - Subjective Interval History: Patient presented with acute abdominal pain found to have acute hepatitis; patient tested positive for hepatitis A, B and C Patient with worsening hepatic function this morning. - Exam Vitals: Temp Pulse Resp BP Pulse Ox 99.5 F 70 19 132/80 92 11/08/17 16:14 11/08/17 16:14 11/08/17 16:14 11/08/17 16:14 11/08/17 16:14 Exam: Gen.: Nonacute distress, alert and oriented 3 ENT: Scleral icterus Respiratory: Lungs are clear to auscultation bilaterally without any wheezing rhonchi or rales Cardiovascular: Normal S1 and S2 regular rate rhythm no murmurs rubs or gallops Abdomen: Patient with right upper quadrant tenderness to palpation Extremities: No lower extremity edema Skin: Jaundice - Assessment and Plan (1) Hepatitis Current Visit: Yes Status: Acute Assessment and Plan: Patient found positive for hepatitis A, B and C AST greater than 3000 and ALT greater than 500; ferritin greater than 1500, total bilirubin 6.3 and albumin 2.9 Consult with recommendations for supportive care We will continue to monitor (2) Nausea and vomiting Current Visit: Yes Status: Acute Assessment and Plan: Suspect secondary to the above Continue IV Zofran as needed (3) Weakness Current Visit: Yes Status: Acute Assessment and Plan: Suspect secondary to liver disease as above (4) Drug abuse Current Visit: Yes Status: Chronic Assessment and Plan: Hx of chronic drug abuse. Pt. states he uses meth. Reports injecting on Saturday and oral ingestion on Saturday. Urine drug tox positive for amphetamines and marijuana Patient does not want help with his addiction at this time (5) Tobacco abuse Current Visit: Yes Status: Chronic Assessment and Plan: Smoking cessation; nicotine replacement DVT Prophylaxis: SCDs - Time Spent with Patient Total time spent is greater than 50% in coordination of care (as documented) at patient's floor/unit and/or counseling patient: Internal Medicine: Result - Labs CBC & Chem 7: 11/08/17 05:16 11/08/17 05:16 Labs: Short CBC 11/08/17 Range/Units 05:16 WBC 5.0 (4.3-11.1) K/mcL Hgb 14.9 D (12.9-16.9) g/dL Hct 44.2 (37.5-50.1) % Plt Count 214 (140-400) K/mcL Neutrophils # 2.6 (1.6-8.9) K/mcL BMP 11/08/17 05:16 Sodium 135 L Potassium 4.3 Chloride 107 Carbon Dioxide 24 BUN 11 Creatinine 0.94 Glucose 99 Calcium 7.8 L Liver Function 11/08/17 Range/Units 05:16 Total Bilirubin 6.3 H (0.3-1.0) mg/dL AST > 3000 H (13-39) Units/L ALT > 500 H (7-52) Units/L Alkaline Phosphatase 217 H (34-104) Units/L Albumin 2.9 L (3.5-5.7) g/dL - ABG Interpretation ABG results: PT/INR, D-dimer PT 15.1 Seconds (9.4-12.1) H 11/07/17 13:04 Consult Discharge Plan - Plan Referrals: NONE,PCP [Primary Care Provider] - (2) Nausea and vomiting Qualifiers: Vomiting type: cyclical vomiting Vomiting Intractability: non-intractable Qualified Code(s): G43.A0 - Cyclical vomiting, not intractable
[2017-11-09 04:30] LABS: Basophils % 0.4 %; Eosinophils % 0.6 %; Hematocrit 44.6 % (37.5-50.1); Hemoglobin 15.2 g/dL (12.9-16.9); Immature Granulocytes % 0.4 % (0-4); Lymphocytes # 1.3 K/mcL (0.6-4.6); Lymphocytes % 26.1 %; Mean Corpuscular HGB Conc 34.1 g/dL (31.6-35.5); Mean Corpuscular Hemoglobin 29.2 pg (28.0-33.3); Mean Corpuscular Volume 85.6 fL (83.0-100.0); Mean Platelet Volume 10.2 fL (9.4-12.4); Monocytes % 20.1 %; Neutrophils # 2.5 K/mcL (1.6-8.9); Platelet Count 215 K/mcL (140-400); Red Blood Count 5.21 M/mcL (4.19-5.50); Red Cell Distribution Width 15.4 % (11.5-14.5); Segmented Neutrophils % 52.4 %
[2017-11-09 04:56] LABS: Platelet Estimate Normal (Normal); Reactive Lymphocytes Present (Not Present)
[2017-11-09 05:08] LABS: Alanine Aminotransferase > 500 Units/L (7-52); Albumin 2.9 g/dL (3.5-5.7); Alkaline Phosphatase 195 Units/L (34-104); Aspartate Amino Transferase > 3000 Units/L (13-39); BUN/Creatinine Ratio 10 (6-26); Bilirubin,Total 6.7 mg/dL (0.3-1.0); Blood Urea Nitrogen 10 mg/dL (6-20); Carbon Dioxide 24 mEq/L (23-29); Chloride 105 mEq/L (98-107); Globulin 2.9 g/dL (2.4-3.5); Glucose 108 mg/dL (70-105); Osmolality,Calculated 278 (280-300); Potassium 4.3 mEq/L (3.5-5.1); Sodium 134 mEq/L (136-145); Total Protein 5.8 g/dL (6.4-8.9); eGFR For Non-African Americans > 60 (> 60)
[2017-11-09] MEDS: 0.9 % Sodium Chloride 1,000 ML IVC SCH ×2 (05:31→15:09)
[2017-11-09] MEDS: Nicotine 14 MG PATCH.TD24 TD SCH (08:50)
--- NOTE | 2017-11-09 08:50 | Internal Med Progress Note ---
Hospitalist Progress Note - Encounter Date of Encounter: 11/09/17 Time of Encounter: 11:00 - Subjective Interval History: Patient presented with acute abdominal pain found to have acute hepatitis; patient tested positive for hepatitis A, B and C Patient with worsening hepatic function this morning; GI following for recommendations - Exam Vitals: Temp Pulse Resp BP Pulse Ox 98.8 F 72 16 146/80 99 11/09/17 06:51 11/09/17 06:51 11/09/17 06:51 11/09/17 06:51 11/09/17 06:51 Exam: Gen.: Nonacute distress, alert and oriented 3 ENT: Scleral icterus Respiratory: Lungs are clear to auscultation bilaterally without any wheezing rhonchi or rales Cardiovascular: Normal S1 and S2 regular rate rhythm no murmurs rubs or gallops Abdomen: Patient with right upper quadrant tenderness to palpation Extremities: No lower extremity edema Skin: Jaundice - Assessment and Plan (1) Hepatitis Current Visit: Yes Status: Acute Assessment and Plan: Patient found positive for hepatitis A, B and C AST greater than 3000 and ALT greater than 500 on admission and no improvement this morning Total bilirubin continues to increase as well: 6.1-> 6.3-> 6.7 Patient with a MELD-Na score of 20. Patient without any renal dysfunction and not hypotensive/vital signs stable Continue supportive care with IV fluids and to monitor liver functions daily GI consulted and appreciate recommendations. (2) Nausea and vomiting Current Visit: Yes Status: Acute Assessment and Plan: Suspect secondary to the above Continue IV Zofran as needed (3) Weakness Current Visit: Yes Status: Acute Assessment and Plan: Suspect secondary to liver disease as above (4) Drug abuse Current Visit: Yes Status: Chronic Assessment and Plan: Hx of chronic drug abuse. Pt. states he uses meth. with recent injections days ago Urine drug tox positive for amphetamines and marijuana Patient does not want help with his addiction at this time (5) Tobacco abuse Current Visit: Yes Status: Chronic Assessment and Plan: Smoking cessation; nicotine replacement DVT Prophylaxis: SCDs - Time Spent with Patient Total time spent is greater than 50% in coordination of care (as documented) at patient's floor/unit and/or counseling patient: Internal Medicine: Result - Labs CBC & Chem 7: 11/09/17 04:01 11/09/17 04:01 Labs: Short CBC 11/09/17 Range/Units 04:01 WBC 4.8 (4.3-11.1) K/mcL Hgb 15.2 (12.9-16.9) g/dL Hct 44.6 (37.5-50.1) % Plt Count 215 (140-400) K/mcL Neutrophils # 2.5 (1.6-8.9) K/mcL BMP 11/09/17 04:01 Sodium 134 L Potassium 4.3 Chloride 105 Carbon Dioxide 24 BUN 10 Creatinine 0.97 Glucose 108 H Calcium 8.0 L Liver Function 11/09/17 Range/Units 04:01 Total Bilirubin 6.7 H (0.3-1.0) mg/dL AST > 3000 H (13-39) Units/L ALT > 500 H (7-52) Units/L Alkaline Phosphatase 195 H (34-104) Units/L Albumin 2.9 L (3.5-5.7) g/dL - ABG Interpretation ABG results: PT/INR, D-dimer PT 15.1 Seconds (9.4-12.1) H 11/07/17 13:04 - Impressions Impressions Abdomen/Pelvis CT 11/07/17 17:23 IMPRESSION: 1. Mild periportal edema is present, which is a nonspecific finding. No significant biliary dilation is seen, although lack of intravenous contrast limits evaluation. 2. Borderline splenomegaly. D/ / 11/07/2017 18:31:54 Mauricio Squires MD / [facility] Interpreting Provider: Mauricio Squires MD Liver Ultrasound 11/08/17 19:00 IMPRESSION: Diffusely thickened edematous gallbladder wall with positive sonographic Willoughby's sign. Findings are nonspecific but can be seen with acalculous cholecystitis. The findings were sent to the [facility]iology [facility] at 7:49 pm on 11/08/2017to be communicated to a licensed caregiver. RECOMMENDATIONS: Consider further evaluation HIDA scan as clinically warranted. D/ / Caden Corbin MD / Caden Corbin MD Interpreting Provider: Caden Corbin MD Consult Discharge Plan - Plan Referrals: NONE,PCP [Primary Care Provider] - (2) Nausea and vomiting Qualifiers: Vomiting type: cyclical vomiting Vomiting Intractability: non-intractable Qualified Code(s): G43.A0 - Cyclical vomiting, not intractable
[2017-11-09 09:25] LABS: Acetaminophen < 10 mcg/mL (10-20)
[2017-11-10] MEDS: 0.9 % Sodium Chloride 1,000 ML IVC SCH ×4 (00:41→20:08)
[2017-11-10 03:50] LABS: Basophils % 0.8 %; Eosinophils % 0.8 %; Hematocrit 44.6 % (37.5-50.1); Hemoglobin 15.2 g/dL (12.9-16.9); Immature Granulocytes % 0.4 % (0-4); Lymphocytes # 1.5 K/mcL (0.6-4.6); Lymphocytes % 31.3 %; Mean Corpuscular HGB Conc 34.1 g/dL (31.6-35.5); Mean Corpuscular Hemoglobin 28.8 pg (28.0-33.3); Mean Corpuscular Volume 84.5 fL (83.0-100.0); Mean Platelet Volume 10.1 fL (9.4-12.4); Monocytes # 1.1 K/mcL (0.0-1.3); Monocytes % 23.3 %; Neutrophils # 2.1 K/mcL (1.6-8.9); Platelet Count 233 K/mcL (140-400); Red Blood Count 5.28 M/mcL (4.19-5.50); Red Cell Distribution Width 15.5 % (11.5-14.5); Segmented Neutrophils % 43.4 %
[2017-11-10 04:09] LABS: INR 1.4; Platelet Estimate Normal (Normal); Prothrombin Time 15.9 Seconds (9.4-12.1); Reactive Lymphocytes Present (Not Present)
[2017-11-10 04:24] LABS: Alanine Aminotransferase > 500 Units/L (7-52); Albumin 2.8 g/dL (3.5-5.7); Albumin/Globulin Ratio 0.9 (1.1-2.2); Alkaline Phosphatase 187 Units/L (34-104); Aspartate Amino Transferase 1964 Units/L (13-39); BUN/Creatinine Ratio 13 (6-26); Bilirubin,Total 6.5 mg/dL (0.3-1.0); Blood Urea Nitrogen 11 mg/dL (6-20); Calcium 8.2 mg/dL (8.6-10.3); Carbon Dioxide 25 mEq/L (23-29); Chloride 106 mEq/L (98-107); Glucose 115 mg/dL (70-105); Osmolality,Calculated 280 (280-300); Potassium 4.1 mEq/L (3.5-5.1); Sodium 135 mEq/L (136-145); Total Protein 5.8 g/dL (6.4-8.9); eGFR For Non-African Americans > 60 (> 60)
[2017-11-10] MEDS: Nicotine 14 MG PATCH.TD24 TD SCH (09:25)
--- NOTE | 2017-11-10 17:44 | Internal Med Progress Note ---
Hospitalist Progress Note - Encounter Date of Encounter: 11/10/17 Time of Encounter: 11:00 - Subjective Interval History: Patient presented with acute abdominal pain found to have acute hepatitis; patient tested positive for hepatitis A, B and C Patient with slight improvement in transaminases this morning without much improvement in abdominal discomfort. Continuing supportive care with IV fluids - Exam Vitals: Temp Pulse Resp BP Pulse Ox 97.9 F 69 16 133/84 100 11/10/17 10:39 11/10/17 14:48 11/10/17 14:48 11/10/17 14:48 11/10/17 14:48 Exam: Gen.: Nonacute distress, alert and oriented 3 ENT: Scleral icterus Respiratory: Lungs are clear to auscultation bilaterally without any wheezing rhonchi or rales Cardiovascular: Normal S1 and S2 regular rate rhythm no murmurs rubs or gallops Abdomen: Patient with right upper quadrant tenderness to palpation Extremities: No lower extremity edema Skin: Jaundice - Assessment and Plan (1) Hepatitis Current Visit: Yes Status: Acute Assessment and Plan: Patient found positive for hepatitis A, B and C AST [id number] BUT ALT still greater than 500 on admission and no improvement this morning Total bilirubin continues to increase as well: 6.1-> 6.3-> 6.7->6.5 INR remained stable at 1.4. Patient with a MELD-Na score of 20. Patient without any renal dysfunction and not hypotensive/vital signs stable Continue supportive care with IV fluids and to monitor liver functions daily GI consulted and appreciate recommendations. (2) Nausea and vomiting Current Visit: Yes Status: Acute Assessment and Plan: Suspect secondary to the above Continue IV Zofran as needed (3) Weakness Current Visit: Yes Status: Acute Assessment and Plan: Suspect secondary to liver disease as above (4) Drug abuse Current Visit: Yes Status: Chronic Assessment and Plan: Hx of chronic drug abuse. Pt. states he uses meth. with recent injections days ago Urine drug tox positive for amphetamines and marijuana Patient does not want help with his addiction at this time (5) Tobacco abuse Current Visit: Yes Status: Chronic Assessment and Plan: Smoking cessation; nicotine replacement DVT Prophylaxis: SCDs - Time Spent with Patient Total time spent is greater than 50% in coordination of care (as documented) at patient's floor/unit and/or counseling patient: Internal Medicine: Result - Labs CBC & Chem 7: 11/10/17 03:35 11/10/17 03:35 Labs: Short CBC 11/10/17 Range/Units 03:35 WBC 4.9 (4.3-11.1) K/mcL Hgb 15.2 (12.9-16.9) g/dL Hct 44.6 (37.5-50.1) % Plt Count 233 (140-400) K/mcL Neutrophils # 2.1 (1.6-8.9) K/mcL BMP 11/10/17 03:35 Sodium 135 L Potassium 4.1 Chloride 106 Carbon Dioxide 25 BUN 11 Creatinine 0.87 Glucose 115 H Calcium 8.2 L Liver Function 11/10/17 Range/Units 03:35 Total Bilirubin 6.5 H (0.3-1.0) mg/dL AST 1964 H (13-39) Units/L ALT > 500 H (7-52) Units/L Alkaline Phosphatase 187 H (34-104) Units/L Albumin 2.8 L (3.5-5.7) g/dL - ABG Interpretation ABG results: PT/INR, D-dimer PT 15.9 Seconds (9.4-12.1) H 11/10/17 03:35 Consult Discharge Plan - Plan Referrals: NONE,PCP [Primary Care Provider] - (2) Nausea and vomiting Qualifiers: Vomiting type: cyclical vomiting Vomiting Intractability: non-intractable Qualified Code(s): G43.A0 - Cyclical vomiting, not intractable
[2017-11-11] MEDS: 0.9 % Sodium Chloride 1,000 ML IVC SCH ×3 (05:51→21:47)
[2017-11-11 08:16] LABS: Basophils % 0.9 %; Eosinophils % 0.9 %; Hematocrit 42.7 % (37.5-50.1); Hemoglobin 14.6 g/dL (12.9-16.9); Immature Granulocytes % 0.4 % (0-4); Lymphocytes # 1.7 K/mcL (0.6-4.6); Lymphocytes % 37.6 %; Mean Corpuscular HGB Conc 34.2 g/dL (31.6-35.5); Mean Corpuscular Hemoglobin 28.7 pg (28.0-33.3); Mean Corpuscular Volume 84.1 fL (83.0-100.0); Mean Platelet Volume 10.4 fL (9.4-12.4); Monocytes # 1.1 K/mcL (0.0-1.3); Monocytes % 23.1 %; Neutrophils # 1.7 K/mcL (1.6-8.9); Platelet Count 224 K/mcL (140-400); Red Blood Count 5.08 M/mcL (4.19-5.50); Red Cell Distribution Width 15.9 % (11.5-14.5); Segmented Neutrophils % 37.1 %
[2017-11-11 08:29] LABS: INR 1.3; Prothrombin Time 14.2 Seconds (9.4-12.1)
[2017-11-11 08:39] LABS: Alanine Aminotransferase > 500 Units/L (7-52); Albumin 2.9 g/dL (3.5-5.7); Albumin/Globulin Ratio 0.9 (1.1-2.2); Alkaline Phosphatase 163 Units/L (34-104); Aspartate Amino Transferase 726 Units/L (13-39); BUN/Creatinine Ratio 11 (6-26); Bilirubin,Total 7.2 mg/dL (0.3-1.0); Blood Urea Nitrogen 10 mg/dL (6-20); Calcium 8.3 mg/dL (8.6-10.3); Carbon Dioxide 24 mEq/L (23-29); Chloride 106 mEq/L (98-107); Globulin 3.1 g/dL (2.4-3.5); Glucose 127 mg/dL (70-105); Osmolality,Calculated 281 (280-300); Sodium 135 mEq/L (136-145); eGFR For Non-African Americans > 60 (> 60)
[2017-11-11] MEDS: Nicotine 14 MG PATCH.TD24 TD SCH (09:28)
--- NOTE | 2017-11-11 09:59 | Internal Med Progress Note ---
Hospitalist Progress Note - Encounter Date of Encounter: 11/11/17 Time of Encounter: 11:00 - Subjective Interval History: Patient presented with acute abdominal pain found to have acute hepatitis; patient tested positive for hepatitis A, B and C Patient with slight improvement in transaminases this morning without much improvement in abdominal discomfort. Continuing supportive care with IV fluids - Exam Vitals: Temp Pulse Resp BP Pulse Ox 98.1 F 67 19 110/70 97 11/11/17 07:21 11/11/17 07:21 11/11/17 07:21 11/11/17 07:21 11/11/17 07:21 Exam: Gen.: Nonacute distress, alert and oriented 3 ENT: Scleral icterus Respiratory: Lungs are clear to auscultation bilaterally without any wheezing rhonchi or rales Cardiovascular: Normal S1 and S2 regular rate rhythm no murmurs rubs or gallops Abdomen: Patient with right upper quadrant tenderness to palpation Extremities: No lower extremity edema Skin: Jaundice - Assessment and Plan (1) Hepatitis Current Visit: Yes Status: Acute Assessment and Plan: Patient found positive for hepatitis A, B and C AST [id number] from 1964 on yesterday BUT ALT still greater than 500 on admission and no improvement this morning Total bilirubin continues to increase as well: 6.1-> 6.3-> 6.7->6.5->7.2 INR remained stable at 1.3. Patient with a MELD-Na score of 20. Patient without any renal dysfunction and not hypotensive/vital signs stable Will order MRCP based on right upper quadrant ultrasound findings of diffuse thickening edematous gallbladder wall. Continue supportive care with IV fluids and to monitor liver functions daily GI following and appreciate recommendations (2) Nausea and vomiting Current Visit: Yes Status: Acute Assessment and Plan: Suspect secondary to the above Continue IV Zofran as needed (3) Weakness Current Visit: Yes Status: Acute Assessment and Plan: Suspect secondary to liver disease as above (4) Drug abuse Current Visit: Yes Status: Chronic Assessment and Plan: Hx of chronic drug abuse. Pt. states he uses meth. with recent injections days ago Urine drug tox positive for amphetamines and marijuana Patient does not want help with his addiction at this time (5) Tobacco abuse Current Visit: Yes Status: Chronic Assessment and Plan: Smoking cessation; nicotine replacement DVT Prophylaxis: SCDs - Time Spent with Patient Total time spent is greater than 50% in coordination of care (as documented) at patient's floor/unit and/or counseling patient: Internal Medicine: Result - Labs CBC & Chem 7: 11/11/17 07:43 11/11/17 07:43 Labs: Short CBC 11/11/17 Range/Units 07:43 WBC 4.6 (4.3-11.1) K/mcL Hgb 14.6 (12.9-16.9) g/dL Hct 42.7 (37.5-50.1) % Plt Count 224 (140-400) K/mcL BMP 11/11/17 07:43 Sodium 135 L Potassium 4.0 Chloride 106 Carbon Dioxide 24 BUN 10 Creatinine 0.87 Glucose 127 H Calcium 8.3 L Liver Function 11/11/17 Range/Units 07:43 Total Bilirubin 7.2 H (0.3-1.0) mg/dL AST 726 H (13-39) Units/L ALT > 500 H (7-52) Units/L Alkaline Phosphatase 163 H (34-104) Units/L Albumin 2.9 L (3.5-5.7) g/dL - ABG Interpretation ABG results: PT/INR, D-dimer PT 14.2 Seconds (9.4-12.1) H 11/11/17 07:43 Consult Discharge Plan - Plan Referrals: NONE,PCP [Primary Care Provider] - (2) Nausea and vomiting Qualifiers: Vomiting type: cyclical vomiting Vomiting Intractability: non-intractable Qualified Code(s): G43.A0 - Cyclical vomiting, not intractable
[2017-11-12 04:22] VITALS: BP 114/73
[2017-11-12] MEDS: 0.9 % Sodium Chloride 1,000 ML IVC SCH (04:53)
[2017-11-12] MEDS: Nicotine 14 MG PATCH.TD24 TD SCH (08:59)
--- NOTE | 2017-11-12 11:42 | Discharge Summary ---
- NOTES TO OUTPATIENT PROVIDER Notes to Outpatient Provider: Follow up LFT. Needs drug and alcohol free to be considered for treatment for Hep C. Orders not resulted at time of discharge: Pending orders 11/11/17 04:00 HIV-1/2 Ab Screen ([facility] Only) [SER] Routine Date of Encounter: 11/12/17 Time of Encounter: 11:40 - Discharge Diagnosis (1) Hepatitis Priority: Primary Status: Acute (2) Weakness Priority: Secondary Status: Acute (3) Drug abuse Priority: Secondary Status: Chronic (4) Tobacco abuse Priority: Secondary Status: Chronic (5) Nausea and vomiting Priority: Secondary Status: Acute Qualifiers: Vomiting type: cyclical vomiting Vomiting Intractability: non-intractable Qualified Code(s): G43.A0 - Cyclical vomiting, not intractable Hospital course: 36M w/PMH of hepatitis presents from the ED w/CC of severe weakness and jaundice since Saturday. Admitted for Nausea and vomiting . Found to be positive for Hep C, Hep A, Utox for methamphetamine. CT showed Mild periportal edema, Borderline splenomegaly. US showed Diffusely thickened edematous gallbladder wall with positive sonographic Willoughby's sign, however MRCP was consistent with Hepatitis. Patient wanted to go home, as his symptoms were almost resolved. No further testing were indicated and LFTs were downtrending. Before DC papers could be completed patient left AMA. Was adviced to f/u with PCP for LFT f/u. Counselled on cessation of drug abuse and tobacco abuse. - Time Spent with Patient Total time spent providing and/or coordinating discharge services: Greater than 30 minutes - Discharge Medications Home Medications: No Known Home Drugs 11/07/17 [History] Allergies/Adverse Reactions: 3 Allergy/AdvReac Type Severity Reaction Status Date / Time No Known Allergies Allergy Verified 11/07/17 11:59 Date of admission: 11/10/17 18:32 Primary care physician: PCP NONE Discharging clinician: Danni Moore - Constitutional Vitals: Temp Pulse Resp BP Pulse Ox 98.6 F 62 14 114/73 100 11/12/17 04:14 11/12/17 04:14 11/12/17 04:14 11/12/17 04:14 11/12/17 04:14 General appearance: Present: cooperative, A&O X 3, pleasant, no acute distress, obese, answers questions appropriately Exam: Gen.: Nonacute distress, alert and oriented 3 ENT: Scleral icterus Respiratory: Lungs are clear to auscultation bilaterally without any wheezing rhonchi or rales Cardiovascular: Normal S1 and S2 regular rate rhythm no murmurs rubs or gallops Abdomen: Patient with right upper quadrant tenderness to palpation Extremities: No lower extremity edema Neuro: No focal deficits, No sensory or motor deficits. Cranial nerve unremarkable. Skin: Jaundice - Patient Status Disposition: Home, Self-Care Condition: Good Functional capacity at discharge: independent ambulation Overall status at discharge: patient is progressing back to baseline - Discharge Instructions Follow Up With: NONE,PCP [Primary Care Provider] - Frank Pate MD [Partnered Physician] - (web requested 11/12/2017) - Diet and Activity Activity: return to work once cleared by your PCP/specialist Diet: advance to your usual diet
[2017-11-12 14:26] LABS: AFP Tumor Marker Non-Pregnant 3 ng/mL (0-9)
[2017-11-12 15:46] LABS: ANA IgG by ELISA NONE DETECTED (None Detected); F-Actin (sm muscle) Ab IgG 27 Units (0-19); Myeloperoxidase Ab 0 AU/mL (0-19); Serine Protease-3 Antibody 7 AU/mL (0-19)
[2017-11-12 15:47] LABS: HCV Quant Log 1.73 log IU/mL
[2017-11-13 08:03] LABS: Smooth Muscle Ab Titer IgG 1:40 (<1:20)
== END 2017-11-12 11:41 | disposition home or self-care (01) ==
LOC: EMEROOARM 11:49 → INTOOBSV 16:09 → SUATTDRO 16:09 → 2ANU 16:09 → SUATTDRO 11-10 18:32
PROVIDERS: ADMIT Student in an Organized Health Care Education/Training Program; ATTEND Internal Medicine